=== PATIENT | female | born 1990 | race Caucasian/White ===

== ENCOUNTER 2020-09-26 07:27 | Emergency (ER) | payer OTHER ==
[~2020-09-26] VITALS: Ht 147.3 cm; Wt 54.4 kg
[2020-09-26] MEDS ORDERED: ALBUTEROL/IPRATROPIUM 3 ML NEB NEB ONE (08:00)
[2020-09-26] MEDS ORDERED: ALBUTEROL SULFATE HFA 8GM INHALATION AEROSOL INH ONE (08:22)
[2020-09-26] MEDS ORDERED: ALBUTEROL SULFATE HFA 8GM INHALATION AEROSOL INH PRN (08:30)
[2020-09-26 08:41] VITALS: BP 121/71
[2020-09-26] MEDS ORDERED: CEFDINIR300 MG PO (08:46)
[2020-09-26] MEDS ORDERED: PREDNISONE10 MG PO (08:46)
== END 2020-09-26 09:10 | disposition home or self-care (01) ==
LOC: FSED 08:08
DX: R06.00 Dyspnea, unspecified (principal); J20.9 Acute bronchitis, unspecified; J44.9 Chronic obstructive pulmonary disease, unspecified; R94.31 Abnormal electrocardiogram [ECG] [EKG]
CPT/HCPCS: 71045; 80053; 82553; 84484; 85025; 93005; 99284

== ENCOUNTER 2020-09-27 06:04 | Inpatient (IN) | payer OTHER ==
[~2020-09-27] VITALS: Ht 147.3 cm; Wt 54.4 kg
[~2020-09-27 06:04] MED LIST: CEFDINIR300 MG PO; PREDNISONE10 MG PO
[2020-09-27] MEDS ORDERED: ALBUTEROL/IPRATROPIUM 3 ML NEB NEB ONE ×2 (06:30→07:00)
[2020-09-27] MEDS ORDERED: IOPAMIDOL 370 MG/ML 200 ML INFUS..BTL INJ ONE (06:42)
[2020-09-27] MEDS ORDERED: SODIUM CHLORIDE 0.9% 50ML 50 ML ONE (06:42)
[2020-09-27] MEDS ORDERED: SODIUM CHLORIDE FLUSH 10 ML SYR INJ PRN (06:45)
[2020-09-27] MEDS ORDERED: SODIUM CHLORIDE 0.9% 1000ML 1,000 ML IV SCH (06:45)
[2020-09-27] MEDS ORDERED: METHYLPREDNISOLONE SOD SUCC 125 MG/2ML VIAL IV ONE (07:00)
[2020-09-27] MEDS ORDERED: ALBUTEROL/IPRATROPIUM 3 ML NEB NEB SCH (07:00)
[2020-09-27 08:24] VITALS: BP 107/68
== END 2020-09-27 08:24 | disposition short-term general hospital (02) | DRG 192 ==
LOC: FSED 06:16 → ERHOLD 06:31
PROVIDERS: ADMIT Internal Medicine; ATTEND Internal Medicine
DX: J44.1 Chronic obstructive pulmonary disease with (acute) exacerbation (principal); R55 Syncope and collapse; R09.02 Hypoxemia; E03.9 Hypothyroidism, unspecified; F41.9 Anxiety disorder, unspecified; Z09 Encounter for follow-up examination after completed treatment for conditions other than malignant neoplasm; Z86.73 Personal history of transient ischemic attack (TIA), and cerebral infarction without residual deficits
CPT/HCPCS: 70450; 71260; 80053; 81003; 81025; 85025; 93005; 96374; 99284; J2930; Q9967; U0002